=== PATIENT | male | born 1985 | race Caucasian/White ===

== ENCOUNTER 2019-07-03 21:07 | Inpatient (IN) | payer MEDICAID ==
[~2019-07-03] VITALS: Ht 170.2 cm; Wt 69.9 kg
[2019-07-03 21:25] VITALS: BP 129/81
[2019-07-03] MEDS ORDERED: Vancomycin 1.5 GM in NS 275 ML IVPB ONE (21:45)
[2019-07-03] MEDS ORDERED: Cefepime HCl 2 GM in NS 110 ML IV ONE (21:45)
[2019-07-03 22:17] LABS: BASOPHILS % (AUTO) 1.5 % (0.0-2.0); EOSINOPHILS % (AUTO) 0.1 % (0.0-3.0); HEMATOCRIT 42.9 % (42.0-52.0); HEMOGLOBIN 14.6 G/DL (14.2-18.0); LYMPHOCYTES % (AUTO) 21.5 % (20.0-45.0); MEAN CORPUSCULAR VOLUME 86 FL (80-99); MONOCYTES % (AUTO) 7.1 % (1.0-10.0); NEUTROPHILS % (AUTO) 69.8 % (45.0-75.0); PLATELET COUNT 243 K/UL (150-450); RED BLOOD COUNT 4.97 M/UL (4.70-6.10); WHITE BLOOD COUNT 5.1 K/UL (4.8-10.8)
--- NOTE | 2019-07-03 22:29 | Diagnostic Imaging Report ---
EXAM: XR Chest, 2 Views CLINICAL HISTORY: SOB TECHNIQUE: Frontal and lateral views of the chest. COMPARISON: No relevant prior studies available. FINDINGS: Lungs: Unremarkable. No consolidation. Pleural space: Unremarkable. No pneumothorax. Heart: Unremarkable. No cardiomegaly. Mediastinum: Unremarkable. Bones/joints: Unremarkable. IMPRESSION: Normal chest.
[2019-07-03] MEDS ORDERED: NKM (22:31)
[2019-07-03 22:34] LABS: ANION GAP 9 mmol/L (5-15); BLOOD UREA NITROGEN 14 mg/dL (7-18); CALCIUM 8.8 MG/DL (8.5-10.1); CARBON DIOXIDE 27 MMOL/L (21-32); CHLORIDE 98 MMOL/L (98-107); POTASSIUM 4.2 MMOL/L (3.5-5.1); SODIUM 134 MMOL/L (136-145)
[2019-07-03 22:50] LABS: ALANINE AMINOTRANSFERASE 44 U/L (12-78); ALBUMIN 3.6 G/DL (3.4-5.0); ALBUMIN/GLOBULIN RATIO 0.7 (1.0-2.7); ALKALINE PHOSPHATASE 241 U/L (46-116); ASPARTATE AMINO TRANSFERASE 47 U/L (15-37); BILIRUBIN,TOTAL 1.4 MG/DL (0.2-1.0); CKMB 0.9 NG/ML (0.0-3.6); CREATINE KINASE 84 U/L (26-308)
[2019-07-03 22:51] LABS: BILIRUBIN,DIRECT 0.2 MG/DL (0.0-0.3)
--- NOTE | 2019-07-03 23:00 | Emergency Room Report ---
History of Present Illness General Chief Complaint: Chest Pain Source: Patient Present Illness HPI 34yo M who presents with severe shortness of breath and substernal chest pain. Patient reports symptoms started 1 week ago, and he has some associated fever- like symptoms. Patient has not taken his temperature. Patient is a known IV drug abuser with a history of endocarditis. Patient states this feels like his endocarditis symptoms. Patient has not tried any medications or treatments for his symptoms. Allergies: Coded Allergies: No Known Allergies (Unverified , 07/05/19) Patient History PMH Narrative History consistent of endocarditis, IV drug abuse PSxH Narrative None Nursing Documentation-PMH Past Medical History: No History, Except For Review of Systems Constitutional: Reports: fever; Denies: chills Respiratory: Reports: cough; Denies: shortness of breath Cardiovascular: Reports: chest pain; Denies: palpitations Gastrointestinal: Denies: diarrhea, vomiting Genitourinary: Denies: hematuria, pain Musculoskeletal: Denies: joint swelling Skin: Denies: rash, lesions Neurological: Denies: headache, dizziness Physical Exam Vital Signs Date Time Temp Pulse Resp B/P (MAP) Pulse Ox O2 Delivery O2 Flow Rate FiO2 07/03/19 21:24 103.6 125 18 129/81 (97) 100 Room Air Sp02 EP Interpretation: reviewed General Appearance: no apparent distress, non-toxic, moderate distress Head: normocephalic, atraumatic Eyes: bilateral eye normal inspection ENT: hearing grossly normal, EOM grossly intact, moist mucus membranes Neck: supple Respiratory: lungs clear, normal breath sounds, decreased breath sounds, speaking full sentences Cardiovascular #1: regular rate, rhythm, normal capillary refill Cardiovascular #2: 2+ radial (R), 2+ radial (L) Gastrointestinal: soft, non-distended Rectal: deferred Musculoskeletal: moves extm spontaneously, no lower extremity edema Neurologic: grossly normal Psychiatric: mood/affect normal Skin: warm/dry, normal turgor Medical Decision Making Diagnostic Impression: Primary Impression: Respiratory distress Additional Impressions: Chest pain Fever ER Course 34-year-old male who presents with fever, chest pain, shortness of breath. No history of IV drug abuse with endocarditis in the past. Found to be in respiratory distress Differential includes endocarditis, sepsis, septic shock, viral illness, influenza, fever of unknown origin, HIV, substance abuse, ACS, PE, pneumothorax , pneumonia, esophageal rupture Will perform all laboratory testing and sepsis protocol given patient is febrile and meets criteria. Lab Results Impression Elevated bilirubin, AST, alk phos, proBNP lactic acid two-point, urine positive for leukocyte esterase and nitrites, d-dimer elevated at 1.31, CBC within normal limits Last Vital Signs Date Time Temp Pulse Resp B/P (MAP) Pulse Ox O2 Delivery O2 Flow Rate FiO2 07/03/19 21:24 103.6 125 18 129/81 (97) 100 Room Air Reevaluation Impression Patient's care discussed with primary care doctor who will admit patient for sepsis given temperature risk factors. Patient given broad-spectrum antibiotic carditis and pulmonary complaints. Patient is agreeable with plan Disposition: ADMITTED INPATIENT Scripts Levofloxacin (LEVOFLOXACIN*) 250 Mg Tablet 750 MG ORAL DAILY for 7 Days, TAB Prov: Shalom Mann MD 07/09/19 Benazepril Hcl* (BENAZEPRIL HCL*) 40 Mg Tablet 20 MG ORAL DAILY for 90 Days, TAB Prov: Shalom Mann MD 07/09/19 Referrals: NOT CHOSEN IPA/,REFERRING (PCP) Focused Exam Allergies: Coded Allergies: No Known Allergies (Unverified , 07/05/19) Date Exam Occurred: Jul 03, 2019 Time Exam Occurred: 23:00 Laboratory Studies Laboratory Tests Test 07/03/19 21:25 White Blood Count 5.1 K/UL (4.8-10.8) Red Blood Count 4.97 M/UL (4.70-6.10) Hemoglobin 14.6 G/DL (14.2-18.0) Hematocrit 42.9 % (42.0-52.0) Mean Corpuscular Volume 86 FL (80-99) Mean Corpuscular Hemoglobin 29.3 PG (27.0-31.0) Mean Corpuscular Hemoglobin Concent 33.9 G/DL (32.0-36.0) Red Cell Distribution Width 11.0 % (11.6-14.8) L Platelet Count 243 K/UL (150-450) Mean Platelet Volume 5.4 FL (6.5-10.1) L Neutrophils (%) (Auto) 69.8 % (45.0-75.0) Lymphocytes (%) (Auto) 21.5 % (20.0-45.0) Monocytes (%) (Auto) 7.1 % (1.0-10.0) Eosinophils (%) (Auto) 0.1 % (0.0-3.0) Basophils (%) (Auto) 1.5 % (0.0-2.0) D-Dimer Pending Sodium Level 134 MMOL/L (136-145) L Potassium Level 4.2 MMOL/L (3.5-5.1) Chloride Level 98 MMOL/L (98-107) Carbon Dioxide Level 27 MMOL/L (21-32) Anion Gap 9 mmol/L (5-15) Blood Urea Nitrogen 14 mg/dL (7-18) Creatinine 1.0 MG/DL (0.55-1.30) Estimat Glomerular Filtration Rate > 60 mL/min (>60) Glucose Level 81 MG/DL (74-106) Lactic Acid Level Pending Calcium Level 8.8 MG/DL (8.5-10.1) Total Bilirubin 1.4 MG/DL (0.2-1.0) H Direct Bilirubin 0.2 MG/DL (0.0-0.3) Aspartate Amino Transf (AST/SGOT) 47 U/L (15-37) H Alanine Aminotransferase (ALT/SGPT) 44 U/L (12-78) Alkaline Phosphatase 241 U/L (46-116) H Total Creatine Kinase 84 U/L (26-308) Creatine Kinase MB 0.9 NG/ML (0.0-3.6) Creatine Kinase MB Relative Index 1.0 Troponin I 0.000 ng/mL (0.000-0.056) Pro-B-Type Natriuretic Peptide 269 pg/mL (0-125) H Total Protein 8.5 G/DL (6.4-8.2) H Albumin 3.6 G/DL (3.4-5.0) Globulin 4.9 g/dL Albumin/Globulin Ratio 0.7 (1.0-2.7) L Vital Signs Last 24 Hour Vital Signs Date Time Temp Pulse Resp B/P (MAP) Pulse Ox O2 Delivery O2 Flow Rate FiO2 07/03/19 21:24 103.6 125 18 129/81 (97) 100 Room Air Respiratory Exam: Clear Cardiovascular Exam: RRR, S1, S2 Capillary Refill: Less Than 2 Seconds Peripheral Pulse: Strong Pulse Location: Yonas Devine M.D. Jul 03, 2019 23:00
[2019-07-03] MEDS ORDERED: DiphenhydrAMINE 50mg/ml Inj IVP ONE (23:15)
[2019-07-03] MEDS ORDERED: Omnipaue 350mg/ml 100ml vial INJ PRN (23:30)
[2019-07-03] MEDS ORDERED: Zolpidem 5mg tab ORAL PRN (23:45)
[2019-07-03] MEDS ORDERED: Milk of Magnesia 30ml Ud ORAL PRN (23:45)
[2019-07-03 23:50] VITALS: BP 136/90
[2019-07-04] VITALS (7 sets, daily range): BP systolic 97–116; BP diastolic 66–83
[2019-07-04 00:04] LABS: APPEARANCE,URINE CLEAR; BILIRUBIN, URINE NEGATIVE (NEGATIVE); GLUCOSE, URINE (UA) NEGATIVE (NEGATIVE); KETONES,URINE NEGATIVE (NEGATIVE); LEUKOCYTE ESTERASE ,URINE 1+ (NEGATIVE); NITRITE,URINE POSITIVE (NEGATIVE); PH,URINE 8 (4.5-8.0); PROTEIN,URINE 1+ (NEGATIVE); UROBILINOGEN,URINE 1 MG/DL (0.0-1.0)
[2019-07-04 00:06] LABS: COLOR,URINE YELLOW
--- NOTE | 2019-07-04 01:30 | Diagnostic Imaging Report ---
EXAM: CT Angiography Chest With Intravenous Contrast CLINICAL HISTORY: CP TECHNIQUE: Axial computed tomographic angiography images of the chest with intravenous contrast using pulmonary embolism protocol. CTDI is 78 mGy and DLP is 631 mGy-cm. One or more of the following dose reduction techniques were used: automated exposure control, adjustment of the mA and/or kV according to patient size, use of iterative reconstruction technique. MIP reconstructed images were created and reviewed. Coronal and sagittal reformatted images were created and reviewed. COMPARISON: No relevant prior studies available. FINDINGS: Pulmonary arteries: Unremarkable. No pulmonary embolism. Aorta: No acute findings. No thoracic aortic aneurysm. Lungs: Scattered areas of linear smooth interstitial prominence, which could be incidental or could be seen with interstitial pulmonary edema. No mass. Pleural space: Unremarkable. No significant effusion. No pneumothorax. Heart: Unremarkable. No cardiomegaly. No significant pericardial effusion. No evidence of RV dysfunction. Bones/joints: No acute fracture. No dislocation. Soft tissues: Unremarkable. Lymph nodes: Prominent right hilar 1.9 cm node, likely reactive, ischemic bowel and subsequent imaging studies. If prior is available to establish chronicity, recommend followup IV contrast enhanced CT chest in 6 months. IMPRESSION: 1. No pulmonary embolism. 2. Scattered areas of linear smooth interstitial prominence, which could be incidental or could be seen with interstitial pulmonary edema. 3. Prominent right hilar 1.9 cm node, likely reactive, ischemic bowel and subsequent imaging studies. If prior is available to establish chronicity, recommend followup IV contrast enhanced CT chest in 6 months. 4. Otherwise unremarkable study.
[2019-07-04] MEDS ORDERED: Cefepime HCl 2 GM in D5W 110 ML IV SCH (06:00)
[2019-07-04] MEDS: Cefepime HCl 2 GM in D5W 110 ML IV SCH ×2 (08:10→17:09)
[2019-07-04] MEDS: Vancomycin 1.25gm/NS Premix 275 ML IVPB SCH ×2 (11:19→21:28)
--- NOTE | 2019-07-04 12:10 | History & Physical ---
History and Physical History & Physicial HP dictated #[id number] Shalom Mann MD Jul 04, 2019 12:10
[2019-07-04] MEDS: Morphine Sulfate 2mg/ml Inj(IV/IM USE ONLY) IVP PRN ×2 (12:20→18:43)
[2019-07-04] MEDS ORDERED: Tubing IV Secondary IV ONE (16:14)
[2019-07-04] MEDS ORDERED: NS 275ml ONE (16:14)
--- NOTE | 2019-07-04 17:15 | History and Physical Report ---
DATE OF ADMISSION: 07/03/2019 CHIEF COMPLAINT: Chest pain, body aches, and fevers. HISTORY OF PRESENT ILLNESS: This is a 34-year-old male who came to the emergency room last night because of body aches, which he has had for about a week now, especially the chest pain and then he had also fevers. In the emergency room, he was noticed to have fever of 103.6. He does have a history of endocarditis, he states, he was diagnosed about a year ago at [place]. He was treated with antibiotics, but then when he left the hospital, he did not continue. The patient is a drug addict. He uses methamphetamine IV. He states the last time he used was 3 days ago. PAST MEDICAL HISTORY: Noncontributory except what was mentioned. MEDICATIONS: None. ALLERGIES: No known drug allergies. 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 He states that he lives with a friend now. He denies history of smoking or alcohol abuse. He does have history of IV drug abuse. REVIEW OF SYSTEMS: As above. PHYSICAL EXAMINATION: GENERAL: The patient is a disheveled 34-year-old male. He is feeling cold. VITAL SIGNS: Blood pressure is 97/66, pulse is 95, temperature 97.2, and respiratory rate is 20. HEENT: [place] conjunctivae. Anicteric sclerae. NECK: Supple. LUNGS: Clear to auscultation. HEART: S1, S2 without murmurs or rubs. ABDOMEN: Soft, nontender. No masses. EXTREMITIES: No cyanosis or edema. LABORATORY FINDINGS: The CBC shows WBC of 5100, hematocrit 42.9, hemoglobin is 14.6, and platelets 243,000. Chemistry panel shows serum sodium of 134, potassium 4.2, chloride 98, CO2 of 27, BUN is 14, and creatinine 1. Lactic acid was initially 2.3 and today is 0.9. Albumin is 3.6. AST is 47 and ALT is 44. ASSESSMENT: This is a 34-year-old male with history of IV drug abuse, who presents with high fevers and chest pain. He may have just a viral infection, but there is possibility he has also bacterial infection because of his IV drug abuse. He was diagnosed with endocarditis before and certainly that is a diagnosis which is still possible that is in differential diagnosis now. PLAN: The patient will be hydrated with IV fluids. He will be on IV antibiotics. ID consultation will be obtained. Labs will be followed and further adjustment will be made in the patient's regimen. The patient will have an echocardiogram to rule out any vegetations. Shalom Mann M.D. DR: Carolina JOB#: [id number] CC:
[2019-07-05] VITALS: BP 112/73
[2019-07-05] MEDS: Cefepime HCl 2 GM in D5W 110 ML IV SCH ×4 (00:16→23:54)
--- NOTE | 2019-07-05 03:46 | Consultation ---
DATE OF CONSULTATION: 07/04/2019 NOTE: POOR AUDIO INFECTIOUS DISEASE CONSULTATION CONSULTING PHYSICIAN: Casimiro Mann M.D. PRIMARY ATTENDING PHYSICIAN: Shalom Mann M.D. REASON FOR CONSULT: Sepsis. HISTORY OF PRESENT ILLNESS: This is a 34-year-old male, admitted last night from home, complaining of fever, not feeling well . The patient has fever of 102.6 in hospital, tachycardia up to 125. PAST MEDICAL HISTORY: Significant for pleural effusion. ALLERGIES: No known drug allergies. MEDICATIONS: Getting vancomycin, cefepime, Tylenol, morphine, magnesium hydroxide, Zofran, and Ambien. SOCIAL HISTORY: He is single. He . Denies alcohol, drug abuse, or smoking. REVIEW OF SYSTEMS: Pain in the left hand muscles. no chest pain. No nausea. No vomiting. No significant abdominal pain. No dysuria. PHYSICAL EXAMINATION: VITAL SIGNS: Temperature 99.8, pulse 97, and blood pressure 110/74. GENERAL APPEARANCE: No acute distress, well developed . HEAD AND NECK: [place] conjunctivae. . LUNGS: Clear. ABDOMEN: Soft. EXTREMITIES: He has some swelling in the left hand around the muscles. No significant leg edema. LABORATORY DATA: WBC 5.1, hemoglobin 14.6, hematocrit 42.9, platelets 343,000. Sodium 134, potassium 4.2, chloride 98, bicarbonate 27, BUN 14, creatinine . Lactic acid was up to 4. alkaline phosphatase 241. The patient had a CT scan of the chest rule out pulmonary emboli and interstitial . UA showed . IMPRESSION: Sepsis with fever and tachycardia, sources unknown. The patient has lactic acidosis including slight elevation of bilirubin and AST. RECOMMENDATION: Continue antibiotic vancomycin . We will follow up the cultures. We will order abdominal ultrasound. We will order HIV test. At the end of my exam, I thank Dr. Shalom Mann for involving me in the care of this patient. Casimiro Mann M.D. DR: SCOT JOB#: [id number] CC:
[2019-07-05 04:00] VITALS: BP 114/70
[2019-07-05 08:00] VITALS: BP 116/70
--- NOTE | 2019-07-05 09:34 | Diagnostic Imaging Report ---
Indication: Abdominal pain Technique: Grayscale and duplex Doppler imaging of the abdomen performed. Comparison: None Findings: The liver is enlarged measuring about 19 cm. Doppler interrogation of the main portal vein shows patency with hepatopedal, monophasic flow. Spleen is 13 cm in size. There is no biliary ductal dilatation identified. Gallbladder is unremarkable. There demonstrated part of the pancreas, aorta and IVC show no definite abnormalities. Both kidneys appear unremarkable. There is no hydronephrosis. IMPRESSION: Hepatosplenomegaly
[2019-07-05] MEDS: Vancomycin 1.25gm/NS Premix 275 ML IVPB SCH (10:46)
[2019-07-05] MEDS: Morphine Sulfate 2mg/ml Inj(IV/IM USE ONLY) IVP PRN (10:51)
[2019-07-05 12:00] VITALS: BP 106/71
--- NOTE | 2019-07-05 12:06 | Infectious Diseases Prog Note ---
Assessment/Plan Assessment/Plan A; Sepsis Lactic acidosis Hepatosplenomegaly P; Continue Vancomycin & Zosyn Will f/u cultures Subjective ROS Limited/Unobtainable: No Constitutional: Reports: fever, other - Bjyn=251.7 HEENT: Reports: other - headache Respiratory: Reports: dry cough Gastrointestinal/Abdominal: Reports: nausea, constipation Genitourinary: Reports: no symptoms Objective Vital Signs Last 24 Hour Vital Signs Date Time Temp Pulse Resp B/P (MAP) Pulse Ox O2 Delivery O2 Flow Rate FiO2 07/05/19 09:00 Room Air 07/05/19 08:00 99.0 93 18 116/70 (85) 98 07/05/19 08:00 93 07/05/19 08:00 93 07/05/19 05:05 101.1 07/05/19 04:00 115 07/05/19 04:00 101.7 119 21 114/70 (85) 96 07/05/19 00:00 96 07/05/19 00:00 100.2 99 20 112/73 (86) 98 07/04/19 21:00 Room Air 07/04/19 20:00 113 07/04/19 20:00 101.1 116 22 108/77 (87) 96 07/04/19 16:00 99.4 119 20 116/68 (84) 96 07/04/19 16:00 118 Height (Feet): 5 Height (Inches): 7.00 Weight (Pounds): 150 General Appearance: no acute distress HEENT: mucous membranes moist, other - supple neck Respiratory/Chest: lungs clear Cardiovascular: normal rate Abdomen: soft, non tender Extremities: no edema Neurologic/Psychiatric: alert, oriented x 3, responsive Microbiology Date/Time Source Procedure Growth Status 07/03/19 21:40 Blood Blood Culture - Preliminary NO GROWTH AFTER 24 HOURS Resulted 07/03/19 21:20 Blood Blood Culture - Preliminary NO GROWTH AFTER 24 HOURS Resulted 07/03/19 21:25 Nasal Not Otherwise Specified - Final Complete 07/03/19 21:25 Nasal Not Otherwise Specified - Final Complete 07/04/19 00:20 Rectum Received Laboratory Tests Test 07/05/19 09:00 Vancomycin Level Trough Pending HIV (1&2) Antibody Rapid Negative (NEGATIVE) Current Medications Medications (Trade) Dose Ordered Sig/Eulalio Route PRN Reason Start Time Stop Time Status Last Admin Dose Admin Acetaminophen (Tylenol) 650 mg Q4H PRN ORAL Mild Pain (Pain Scale 1-3) 07/03/19 23:45 08/02/19 23:44 07/05/19 04:35 Cefepime HCl 2 gm/ Dextrose 110 ml @ 220 mls/hr Q8H IV 07/04/19 08:00 07/11/19 07:59 07/05/19 08:11 Dextrose (Dextrose 50%) 25 ml Q30M PRN IV Hypoglycemia 07/03/19 23:45 08/02/19 23:44 Dextrose (Dextrose 50%) 50 ml Q30M PRN IV Hypoglycemia 07/03/19 23:45 08/02/19 23:44 Iohexol (Omnipaque) 100 mg NOW PRN INJ Radiology Procedure 07/03/19 23:30 07/05/19 23:17 Magnesium Hydroxide (Mom) 30 ml HSPRN PRN ORAL Constipation 07/03/19 23:45 08/02/19 23:44 Morphine Sulfate (Morphine Sulfate) 2 mg EVERY 3 HOURS PRN IVP Moderate Pain (Pain Scale 4-6) 07/03/19 23:45 07/10/19 23:44 07/05/19 10:51 Morphine Sulfate (Morphine Sulfate) 4 mg EVERY 3 HOURS PRN IVP Severe Pain (Pain Scale 7-10) 07/03/19 23:45 07/10/19 23:44 Ondansetron HCl (Zofran) 4 mg Q6H PRN IVP Nausea & Vomiting 07/03/19 23:45 08/02/19 23:44 07/04/19 12:24 Vancomycin HCl (Vanco rx to dose) 1 ea DAILY PRN MISC Per rx protocol 07/03/19 23:45 08/02/19 23:44 Vancomycin/Sodium Chloride 275 ml @ 184 mls/hr Q12H IVPB 07/04/19 10:00 07/09/19 09:59 07/05/19 10:46 Zolpidem Tartrate (Ambien) 5 mg DAILYPRN PRN ORAL Insomnia 07/03/19 23:45 07/10/19 23:44 Casimiro Mann MD Jul 05, 2019 12:06
--- NOTE | 2019-07-05 13:01 | General Progress Note ---
Assessment/Plan Problem List: (1) Lactic acidosis ICD Codes: E87.2 - Acidosis SNOMED: 39536602 (2) Sepsis ICD Codes: A41.9 - Sepsis, unspecified organism SNOMED: 71802110 (3) Chest pain ICD Codes: R07.9 - Chest pain, unspecified SNOMED: 63968530 Assessment/Plan: abxs follow cultures check Echo Subjective Allergies: Coded Allergies: No Known Allergies (Unverified , 07/05/19) Subjective had fevers last night Objective Last 24 Hour Vital Signs Date Time Temp Pulse Resp B/P (MAP) Pulse Ox O2 Delivery O2 Flow Rate FiO2 07/05/19 12:00 98.4 101 20 106/71 (83) 98 07/05/19 09:00 Room Air 07/05/19 08:00 99.0 93 18 116/70 (85) 98 07/05/19 08:00 93 07/05/19 08:00 93 07/05/19 05:05 101.1 07/05/19 04:00 115 07/05/19 04:00 101.7 119 21 114/70 (85) 96 07/05/19 00:00 96 07/05/19 00:00 100.2 99 20 112/73 (86) 98 07/04/19 21:00 Room Air 07/04/19 20:00 113 07/04/19 20:00 101.1 116 22 108/77 (87) 96 07/04/19 16:00 99.4 119 20 116/68 (84) 96 07/04/19 16:00 118 Intake and Output 07/04/19 07/05/19 19:00 07:00 Intake Total 480 ml 505 ml Output Total 700 ml 750 ml Balance -220 ml -245 ml Intake Oral 480 ml 120 ml IV Total 385 ml Output Urine Total 700 ml 750 ml # Voids 4 Laboratory Tests 07/05/19 09:00: Vancomycin Level Trough 7.5, HIV (1&2) Antibody Rapid Negative Height (Feet): 5 Height (Inches): 7.00 Weight (Pounds): 150 Cardiovascular: normal rate Respiratory/Chest: lungs clear Shalom Mann MD Jul 05, 2019 13:01
[2019-07-05 16:00] VITALS: BP 121/80
[2019-07-05] MEDS: Morphine Sulfate 4mg/ml Inj (IV USE ONLY) IVP PRN ×2 (16:08→20:01)
--- NOTE | 2019-07-05 19:22 | Cardiology Report ---
APPROVED REPORT EKG Measurement Heart [id number] Sinus tachycardia Cannot rule out Anterior infarct, age undetermined Abnormal ECG
--- NOTE | 2019-07-05 19:42 | Cardiology Report ---
APPROVED REPORT EXAM: Two-dimensional and M-mode echocardiogram with Doppler and color Doppler. INDICATION ENDOCARTITIS M-Mode DIMENSIONS IVSd0.6 (0.7-1.1cm)Left Atrium (MM)2.8 (1.6-4.0cm) LVDd4.0 (3.5-5.6cm)Aortic Root3.5 (2.0-3.7cm) PWd0.8 (0.7-1.1cm)Aortic Cusp Exc.1.9 (1.5-2.0cm) IVSs0.9 cm LVDs3.0 (2.5-4.0cm) PWs0.8 cm Normal left ventricular chamber size, systolic function and wall motion to extent visualized. Global left ventricular wall hypokinesia except the septal wall which is dyskinetic. Left ventricular ejection fraction is estimated to be 30-35%. There is inward septal wall excursion that is suggestive of increased RV volume and pressure overload. Normal left atrial chamber size . Moderate right atrial enlargement . Mild right ventricular enlargement with mildly reduced RV systolic function. Aortic valve calcification with normal cusp excursion . Moderately thickened mitral valve leaflets with normal excursion. Mild mitral annulus and aortic root calcification. Pulmonic valve not well visualized. Increased IVC diameter with less than 50% physiologic collapse suggestive of increased RA pressure at 12 mmHg. A color flow and spectral Doppler study was performed and revealed: Mitral diastolic velocities suggest reduced left ventricular relaxation c/w mild LV diastolic dysfunction (Grade I ) Trace mitral regurgitation. Moderate to severe tricuspid regurgitation. Tricuspid systolic velocities suggests peak right ventricular systolic pressure of 14mmHg.
[2019-07-05] MEDS: Vancomycin 1gm in Dextrose 275ml IVPB SCH (20:11)
[2019-07-05 20:23] VITALS: BP 110/67
[2019-07-06] VITALS: BP 106/73
[2019-07-06 04:00] VITALS: BP 109/67
[2019-07-06] MEDS: Vancomycin 1gm in Dextrose 275ml IVPB SCH ×2 (04:54→11:42)
[2019-07-06 08:00] VITALS: BP 120/93
[2019-07-06] MEDS: Cefepime HCl 2 GM in D5W 110 ML IV SCH ×2 (08:19→16:08)
[2019-07-06] MEDS: Morphine Sulfate 4mg/ml Inj (IV USE ONLY) IVP PRN ×2 (08:24→21:39)
--- NOTE | 2019-07-06 11:56 | Infectious Diseases Prog Note ---
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 P; Continue Vancomycin & Zosyn Will f/u cultures CT scan of abdomen & Pelvis with contrast Subjective ROS Limited/Unobtainable: No Constitutional: Reports: fever, other - last night Respiratory: Reports: dry cough Cardiovascular: Reports: no symptoms Gastrointestinal/Abdominal: Reports: nausea, constipation, other - abdominal pain Genitourinary: Reports: no symptoms Neurologic: Reports: no symptoms Allergies: Coded Allergies: No Known Allergies (Unverified , 07/05/19) Objective Vital Signs Last 24 Hour Vital Signs Date Time Temp Pulse Resp B/P (MAP) Pulse Ox O2 Delivery O2 Flow Rate FiO2 07/06/19 09:00 Room Air 07/06/19 08:00 99.1 100 18 120/93 (102) 98 07/06/19 08:00 98 07/06/19 04:00 98.8 100 17 109/67 (81) 94 07/06/19 04:00 89 07/06/19 00:00 101 07/06/19 00:00 98.6 105 19 106/73 (84) 94 07/05/19 22:45 98.6 07/05/19 21:00 Room Air 07/05/19 20:23 102.0 117 20 110/67 (81) 95 07/05/19 20:00 117 07/05/19 16:00 99.9 119 20 121/80 (94) 99 07/05/19 16:00 116 07/05/19 12:00 105 07/05/19 12:00 98.4 101 20 106/71 (83) 98 Height (Feet): 5 Height (Inches): 7.00 Weight (Pounds): 150 General Appearance: no acute distress HEENT: mucous membranes moist Respiratory/Chest: lungs clear Cardiovascular: tachycardia Abdomen: soft, non tender Extremities: no edema Neurologic/Psychiatric: alert, oriented x 3, responsive Microbiology Date/Time Source Procedure Growth Status 07/03/19 21:40 Blood Blood Culture - Preliminary Staphylococcus Sp Coag Neg Resulted 07/03/19 21:20 Blood Blood Culture - Preliminary NO GROWTH AFTER 48 HOURS Resulted 07/04/19 00:20 Nasal Nares MRSA Culture - Final Staphylococcus Aureus - Mrsa Complete 07/03/19 21:25 Nasal Not Otherwise Specified - Final Complete 07/03/19 21:25 Nasal Not Otherwise Specified - Final Complete 07/04/19 00:20 Rectum VRE Culture - Final NO VANCOMYCIN RESISTANT ENTEROCOCCUS ... Complete 07/04/19 00:17 Rectum - Final NO CARBAPENEM-RESISTANT ENTEROBACTERI... Complete Current Medications Medications (Trade) Dose Ordered Sig/Eulalio Route PRN Reason Start Time Stop Time Status Last Admin Dose Admin Acetaminophen (Tylenol) 650 mg Q4H PRN ORAL Mild Pain (Pain Scale 1-3) 07/03/19 23:45 08/02/19 23:44 07/05/19 22:15 Cefepime HCl 2 gm/ Dextrose 110 ml @ 220 mls/hr Q8H IV 07/04/19 08:00 07/11/19 07:59 07/06/19 08:19 Dextrose (Dextrose 50%) 25 ml Q30M PRN IV Hypoglycemia 07/03/19 23:45 08/02/19 23:44 Dextrose (Dextrose 50%) 50 ml Q30M PRN IV Hypoglycemia 07/03/19 23:45 08/02/19 23:44 Magnesium Hydroxide (Mom) 30 ml HSPRN PRN ORAL Constipation 07/03/19 23:45 08/02/19 23:44 Morphine Sulfate (Morphine Sulfate) 2 mg EVERY 3 HOURS PRN IVP Moderate Pain (Pain Scale 4-6) 07/03/19 23:45 07/10/19 23:44 07/05/19 10:51 Morphine Sulfate (Morphine Sulfate) 4 mg EVERY 3 HOURS PRN IVP Severe Pain (Pain Scale 7-10) 07/03/19 23:45 07/10/19 23:44 07/06/19 08:24 Ondansetron HCl (Zofran) 4 mg Q6H PRN IVP Nausea & Vomiting 07/03/19 23:45 08/02/19 23:44 07/05/19 23:54 Vancomycin HCl (Vanco rx to dose) 1 ea DAILY PRN MISC Per rx protocol 07/03/19 23:45 08/02/19 23:44 Vancomycin HCl 1 gm/Dextrose 275 ml @ 183.708 mls/hr Q8H IVPB 07/05/19 20:00 07/10/19 19:59 07/06/19 11:42 Zolpidem Tartrate (Ambien) 5 mg DAILYPRN PRN ORAL Insomnia 07/03/19 23:45 07/10/19 23:44 Casimiro Mann MD Jul 06, 2019 11:56
[2019-07-06 12:00] VITALS: BP 113/72
[2019-07-06] MEDS ORDERED: Omnipaque-300 100ml vial INJ PRN (12:00)
[2019-07-06] MEDS: Morphine Sulfate 2mg/ml Inj(IV/IM USE ONLY) IVP PRN (15:18)
[2019-07-06 16:00] VITALS: BP 115/77
--- NOTE | 2019-07-06 16:33 | Diagnostic Imaging Report ---
Clinical Indication: Abdominal pain Technique: Patient ingested oral contrast. IV administration nonionic contrast. Venous phase spiral acquisition obtained through the abdomen and pelvis. Multiplanar reconstructions were generated. Total dose length product 684 mGycm. CTDIvol(s) 12 mGy. Dose reduction achieved using automated exposure control Comparison: none Findings: There is distention of the rectum by feces, diameter of the rectum to the 6 cm. There is no significant rectal wall thickening. No evidence of colonic diverticulosis or diverticulitis. The appendix is not definitely identified, but no findings to suggest acute appendicitis are evident. Ingested contrast has not reached the distal ileum. No small bowel distention or small bowel wall thickening. Distal esophagus, stomach, duodenum are unremarkable. No free or loculated intraperitoneal gas or fluid is evident. The liver is mildly enlarged. The gallbladder, bile ducts, pancreas are unremarkable. The spleen is enlarged, measures 14.1 cm long axis dimension. The adrenals and kidneys are unremarkable. No retroperitoneal or mesenteric mass or adenopathy. No pelvic mass or adenopathy. The bladder is equivocally slightly thick walled, although this could be an artifact of under distention There is a small anterior wall pericardial effusion noted. The heart is enlarged. The included lung bases demonstrate mild interstitial septal thickening. Atelectasis or scarring is seen at both lung bases. Impression: Mild distention of the rectum by feces, rectal fecal impaction possible. Correlate with clinical findings Borderline bladder wall thickening, probably artifact of under distention but No definite acute process otherwise Splenomegaly Mild hepatomegaly Cardiomegaly Small anterior wall pericardial effusion Interstitial pulmonary septal thickening, nonspecific but suspect on the basis of mild pulmonary edema Basilar atelectasis and scarring incidentally noted The CT scanner at [facility] is accredited by the [employer] and the scans are performed using protocols designed to limit radiation exposure to as low as reasonably achievable to attain images of sufficient resolution adequate for diagnostic evaluation.
[2019-07-06 20:00] VITALS: BP 112/74
--- NOTE | 2019-07-06 20:10 | General Progress Note ---
Assessment/Plan Problem List: (1) Lactic acidosis ICD Codes: E87.2 - Acidosis SNOMED: 58258050 (2) Sepsis ICD Codes: A41.9 - Sepsis, unspecified organism SNOMED: 29051748 (3) Chest pain ICD Codes: R07.9 - Chest pain, unspecified SNOMED: 72156183 (4) Cardiomyopathy ICD Codes: I42.9 - Cardiomyopathy, unspecified SNOMED: 55471045 Assessment/Plan: srat benazepril abxs will discuss with ID Subjective Allergies: Coded Allergies: No Known Allergies (Unverified , 07/05/19) Subjective feels weak Objective Last 24 Hour Vital Signs Date Time Temp Pulse Resp B/P (MAP) Pulse Ox O2 Delivery O2 Flow Rate FiO2 07/06/19 16:00 108 07/06/19 16:00 99.9 108 20 115/77 (90) 98 07/06/19 12:00 101 07/06/19 12:00 99.7 105 18 113/72 (86) 96 07/06/19 09:00 Room Air 07/06/19 08:00 99.1 100 18 120/93 (102) 98 07/06/19 08:00 98 07/06/19 04:00 98.8 100 17 109/67 (81) 94 07/06/19 04:00 89 07/06/19 00:00 101 07/06/19 00:00 98.6 105 19 106/73 (84) 94 07/05/19 22:45 98.6 07/05/19 21:00 Room Air 07/05/19 20:23 102.0 117 20 110/67 (81) 95 Intake and Output 07/05/19 07/06/19 19:00 07:00 Intake Total 800 ml 250 ml Output Total 600 ml 1000 ml Balance 200 ml -750 ml Intake Oral 800 ml 250 ml Output Urine Total 600 ml 1000 ml # Voids 2 Laboratory Tests 07/06/19 19:00: Vancomycin Level Trough [Pending] Height (Feet): 5 Height (Inches): 7.00 Weight (Pounds): 150 Cardiovascular: normal rate Respiratory/Chest: lungs clear Shalom Mann MD Jul 06, 2019 20:10
[2019-07-06] MEDS: Vancomycin 1.25gm/NS Premix IVPB SCH (21:37)
[2019-07-07] VITALS: BP 98/55
[2019-07-07] MEDS: Cefepime HCl 2 GM in D5W 110 ML IV SCH ×3 (00:06→16:28)
[2019-07-07 04:00] VITALS: BP 108/67
[2019-07-07] MEDS: Vancomycin 1.25gm/NS Premix IVPB SCH ×2 (04:50→12:40)
[2019-07-07 08:00] VITALS: BP 102/64
[2019-07-07 08:15] LABS: BASOPHILS % (AUTO) 0.5 % (0.0-2.0); EOSINOPHILS % (AUTO) 0.4 % (0.0-3.0); HEMATOCRIT 41.7 % (42.0-52.0); HEMOGLOBIN 13.8 G/DL (14.2-18.0); LYMPHOCYTES % (AUTO) 31.7 % (20.0-45.0); MEAN CORPUSCULAR VOLUME 87 FL (80-99); MONOCYTES % (AUTO) 8.7 % (1.0-10.0); NEUTROPHILS % (AUTO) 58.8 % (45.0-75.0); PLATELET COUNT 237 K/UL (150-450); WHITE BLOOD COUNT 6.4 K/UL (4.8-10.8)
[2019-07-07 12:00] VITALS: BP 103/68
--- NOTE | 2019-07-07 12:14 | Infectious Diseases Prog Note ---
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 CHF, EF =30-35% Tricuspid regurgitation Mild fecal impaction P; Continue Vancomycin & Zosyn Will f/u cultures Subjective ROS Limited/Unobtainable: No Constitutional: Reports: fever Respiratory: Reports: no symptoms Cardiovascular: Reports: chest pain Gastrointestinal/Abdominal: Reports: no symptoms, constipation Genitourinary: Reports: no symptoms Allergies: Coded Allergies: No Known Allergies (Unverified , 07/05/19) Objective Vital Signs Last 24 Hour Vital Signs Date Time Temp Pulse Resp B/P (MAP) Pulse Ox O2 Delivery O2 Flow Rate FiO2 07/07/19 08:34 102/64 07/07/19 08:00 98.2 69 18 102/64 (77) 97 07/07/19 08:00 89 07/07/19 05:45 98.2 07/07/19 05:34 98.2 07/07/19 04:00 100.5 114 20 108/67 (81) 96 07/07/19 04:00 117 07/07/19 00:00 98.8 100 18 98/55 (69) 99 07/07/19 00:00 100 07/06/19 21:38 112/74 07/06/19 21:00 Room Air 07/06/19 20:00 98.2 87 19 112/74 (87) 97 07/06/19 20:00 92 07/06/19 16:00 108 07/06/19 16:00 99.9 108 20 115/77 (90) 98 Height (Feet): 5 Height (Inches): 7.00 Weight (Pounds): 154 General Appearance: no acute distress HEENT: mucous membranes moist Respiratory/Chest: lungs clear Cardiovascular: normal rate Abdomen: soft, non tender Extremities: no edema Neurologic/Psychiatric: alert, oriented x 3, responsive Laboratory Tests Test 07/06/19 19:00 07/07/19 07:15 Vancomycin Level Trough 11.0 ug/mL (5.0-12.0) White Blood Count 6.4 K/UL (4.8-10.8) Red Blood Count 4.80 M/UL (4.70-6.10) Hemoglobin 13.8 G/DL (14.2-18.0) L Hematocrit 41.7 % (42.0-52.0) L Mean Corpuscular Volume 87 FL (80-99) Mean Corpuscular Hemoglobin 28.7 PG (27.0-31.0) Mean Corpuscular Hemoglobin Concent 33.0 G/DL (32.0-36.0) Red Cell Distribution Width 12.0 % (11.6-14.8) Platelet Count 237 K/UL (150-450) Mean Platelet Volume 5.4 FL (6.5-10.1) L Neutrophils (%) (Auto) 58.8 % (45.0-75.0) Lymphocytes (%) (Auto) 31.7 % (20.0-45.0) Monocytes (%) (Auto) 8.7 % (1.0-10.0) Eosinophils (%) (Auto) 0.4 % (0.0-3.0) Basophils (%) (Auto) 0.5 % (0.0-2.0) Current Medications Medications (Trade) Dose Ordered Sig/Eulalio Route PRN Reason Start Time Stop Time Status Last Admin Dose Admin Acetaminophen (Tylenol) 650 mg Q4H PRN ORAL Mild Pain (Pain Scale 1-3) 07/03/19 23:45 08/02/19 23:44 07/07/19 05:04 Barium Sulfate (Readi-Cat 2) 450 ml NOW PRN ORAL Radiology Procedure 07/06/19 12:00 07/08/19 11:56 Benazepril HCl (Lotensin) 20 mg DAILY ORAL 07/06/19 20:15 08/05/19 20:14 07/06/19 21:38 Cefepime HCl 2 gm/ Dextrose 110 ml @ 220 mls/hr Q8H IV 07/04/19 08:00 07/11/19 07:59 07/07/19 08:34 Dextrose (Dextrose 50%) 25 ml Q30M PRN IV Hypoglycemia 07/03/19 23:45 08/02/19 23:44 Dextrose (Dextrose 50%) 50 ml Q30M PRN IV Hypoglycemia 07/03/19 23:45 08/02/19 23:44 Iohexol (OMNIPAQUE-300 100ml) 100 ml NOW PRN INJ Radiology Procedure 07/06/19 12:00 07/08/19 11:56 Magnesium Hydroxide (Mom) 30 ml HSPRN PRN ORAL Constipation 07/03/19 23:45 08/02/19 23:44 Morphine Sulfate (Morphine Sulfate) 2 mg EVERY 3 HOURS PRN IVP Moderate Pain (Pain Scale 4-6) 07/03/19 23:45 07/10/19 23:44 07/06/19 15:18 Morphine Sulfate (Morphine Sulfate) 4 mg EVERY 3 HOURS PRN IVP Severe Pain (Pain Scale 7-10) 07/03/19 23:45 07/10/19 23:44 07/06/19 21:39 Ondansetron HCl (Zofran) 4 mg Q6H PRN IVP Nausea & Vomiting 07/03/19 23:45 08/02/19 23:44 07/05/19 23:54 Vancomycin HCl (Vanco rx to dose) 1 ea DAILY PRN MISC Per rx protocol 07/03/19 23:45 08/02/19 23:44 Vancomycin/Sodium Chloride 275 ml @ 183.333 mls/hr Q8H IVPB 07/06/19 21:00 07/11/19 20:59 07/07/19 04:50 Zolpidem Tartrate (Ambien) 5 mg DAILYPRN PRN ORAL Insomnia 07/03/19 23:45 07/10/19 23:44 Casimiro Mann MD Jul 07, 2019 12:14
--- NOTE | 2019-07-07 14:06 | General Progress Note ---
Assessment/Plan Problem List: (1) Lactic acidosis ICD Codes: E87.2 - Acidosis SNOMED: 41917292 (2) Sepsis ICD Codes: A41.9 - Sepsis, unspecified organism SNOMED: 52229052 (3) Chest pain ICD Codes: R07.9 - Chest pain, unspecified SNOMED: 63685103 (4) Cardiomyopathy ICD Codes: I42.9 - Cardiomyopathy, unspecified SNOMED: 93429783 Assessment/Plan: cardiology consult abxs discussed with RN Subjective Allergies: Coded Allergies: No Known Allergies (Unverified , 07/05/19) Subjective feels weak Objective Last 24 Hour Vital Signs Date Time Temp Pulse Resp B/P (MAP) Pulse Ox O2 Delivery O2 Flow Rate FiO2 07/07/19 12:00 81 07/07/19 12:00 97.8 86 18 103/68 (80) 100 07/07/19 09:00 Room Air 07/07/19 08:34 102/64 07/07/19 08:00 98.2 69 18 102/64 (77) 97 07/07/19 08:00 89 07/07/19 05:45 98.2 07/07/19 05:34 98.2 07/07/19 04:00 100.5 114 20 108/67 (81) 96 07/07/19 04:00 117 07/07/19 00:00 98.8 100 18 98/55 (69) 99 07/07/19 00:00 100 07/06/19 21:38 112/74 07/06/19 21:00 Room Air 07/06/19 20:00 98.2 87 19 112/74 (87) 97 07/06/19 20:00 92 07/06/19 16:00 108 07/06/19 16:00 99.9 108 20 115/77 (90) 98 Intake and Output 07/06/19 07/07/19 18:59 06:59 Intake Total 940 ml 760 ml Output Total 900 ml 1300 ml Balance 40 ml -540 ml Intake Oral 940 ml 760 ml Output Urine Total 900 ml 1300 ml # Voids 3 Laboratory Tests 07/06/19 19:00: Vancomycin Level Trough 11.0 07/07/19 07:15: White Blood Count 6.4, Red Blood Count 4.80, Hemoglobin 13.8L, Hematocrit 41.7L , Mean Corpuscular Volume 87, Mean Corpuscular Hemoglobin 28.7, Mean Corpuscular Hemoglobin Concent 33.0, Red Cell Distribution Width 12.0, Platelet Count 237, Mean Platelet Volume 5.4L, Neutrophils (%) (Auto) 58.8, Lymphocytes ( %) (Auto) 31.7, Monocytes (%) (Auto) 8.7, Eosinophils (%) (Auto) 0.4, Basophils (%) (Auto) 0.5 Height (Feet): 5 Height (Inches): 7.00 Weight (Pounds): 154 Cardiovascular: normal rate Respiratory/Chest: lungs clear Edema: no edema noted Generalized Shalom Mann MD Jul 07, 2019 14:06
[2019-07-07] MEDS ORDERED: Omnipaque-300 100ml vial INJ PRN (15:30)
[2019-07-07] MEDS ORDERED: Morphine Sulfate 2mg/ml Inj(IV/IM USE ONLY) IVP PRN (15:30)
[2019-07-07 16:00] VITALS: BP 102/95
[2019-07-07] MEDS: Milk of Magnesia 30ml Ud ORAL PRN (16:42)
[2019-07-07] MEDS: Morphine Sulfate 4mg/ml Inj (IV USE ONLY) IVP PRN (16:44)
[2019-07-07 20:00] VITALS: BP 113/68
[2019-07-07] MEDS ORDERED: Zolpidem 5mg tab ORAL PRN (21:00)
[2019-07-07] MEDS ORDERED: Vancomycin 1.25gm/NS Premix 275 ML IVPB SCH (21:00)
[2019-07-08] VITALS: BP 112/66
[2019-07-08] MEDS: Cefepime HCl 2 GM in D5W 110 ML IV SCH ×4 (00:25→23:29)
[2019-07-08] MEDS: Morphine Sulfate 4mg/ml Inj (IV USE ONLY) IVP PRN ×5 (00:34→20:57)
[2019-07-08 04:00] VITALS: BP 111/67
[2019-07-08] MEDS: Vancomycin 1.5gm/NS Premix IVPB SCH ×3 (04:16→20:52)
[2019-07-08 06:40] LABS: ANION GAP 10 mmol/L (5-15); BLOOD UREA NITROGEN 15 mg/dL (7-18); CALCIUM 8.1 MG/DL (8.5-10.1); CARBON DIOXIDE 25 MMOL/L (21-32); CHLORIDE 96 MMOL/L (98-107); CREATININE 0.8 MG/DL (0.55-1.30); POTASSIUM 5.1 MMOL/L (3.5-5.1); SODIUM 131 MMOL/L (136-145)
[2019-07-08 08:00] VITALS: BP 101/66
[2019-07-08 12:00] VITALS: BP 109/75
--- NOTE | 2019-07-08 12:48 | General Progress Note ---
Assessment/Plan Problem List: (1) Lactic acidosis ICD Codes: E87.2 - Acidosis SNOMED: 44229931 (2) Sepsis ICD Codes: A41.9 - Sepsis, unspecified organism SNOMED: 96539580 (3) Chest pain ICD Codes: R07.9 - Chest pain, unspecified SNOMED: 67128743 (4) Cardiomyopathy ICD Codes: I42.9 - Cardiomyopathy, unspecified SNOMED: 34151378 Assessment/Plan: cardiology consult abxs discussed with RN Alexandre inhibitors Subjective Allergies: Coded Allergies: No Known Allergies (Unverified , 07/05/19) Subjective feels better Objective Last 24 Hour Vital Signs Date Time Temp Pulse Resp B/P (MAP) Pulse Ox O2 Delivery O2 Flow Rate FiO2 07/08/19 12:00 97.9 92 19 109/75 (86) 98 07/08/19 09:00 Room Air 07/08/19 08:10 101/66 07/08/19 08:00 97.7 102 18 101/66 (78) 97 07/08/19 04:00 99.2 98 17 111/67 (82) 97 07/08/19 00:00 98.8 107 17 112/66 (81) 97 07/07/19 21:00 Room Air 07/07/19 20:00 98.3 95 17 113/68 (83) 98 07/07/19 16:00 98.2 81 16 102/95 (97) 98 Intake and Output 07/07/19 07/08/19 19:00 07:00 Intake Total 250 ml 660.000 ml Output Total 200 ml 500 ml Balance 50 ml 160.000 ml Intake Oral 140 ml IV Total 110 ml 660.000 ml Output Urine Total 200 ml 500 ml # Voids 1 2 # Bowel Movements 1 Laboratory Tests 07/07/19 20:10: Vancomycin Level Trough 13.9H 07/08/19 06:15: Sodium Level 131L, Potassium Level 5.1, Chloride Level 96L, Carbon Dioxide Level 25, Anion Gap 10, Blood Urea Nitrogen 15, Creatinine 0.8, Estimat Glomerular Filtration Rate > 60, Glucose Level 96, Calcium Level 8.1L Height (Feet): 5 Height (Inches): 7.00 Weight (Pounds): 154 Cardiovascular: normal rate Respiratory/Chest: lungs clear Edema: no edema noted Generalized Shalom Mann MD Jul 08, 2019 12:48
--- NOTE | 2019-07-08 15:43 | Infectious Diseases Prog Note ---
Assessment/Plan Assessment/Plan A; Sepsis, no source was found Lactic acidosis Hepatosplenomegaly MRSA carrier Positive blood culture for CoANS likely contamination CHF, EF =30-35% Tricuspid regurgitation Mild fecal impaction P; Continue Vancomycin & Cefepime X 2 days Will f/u cultures Subjective ROS Limited/Unobtainable: No Constitutional: Reports: no symptoms, other - feels better Respiratory: Reports: no symptoms Gastrointestinal/Abdominal: Reports: no symptoms, other - had bowel movement Genitourinary: Reports: no symptoms Allergies: Coded Allergies: No Known Allergies (Unverified , 07/05/19) Objective Vital Signs Last 24 Hour Vital Signs Date Time Temp Pulse Resp B/P (MAP) Pulse Ox O2 Delivery O2 Flow Rate FiO2 07/08/19 12:00 97.9 92 19 109/75 (86) 98 07/08/19 09:00 Room Air 07/08/19 08:10 101/66 07/08/19 08:00 97.7 102 18 101/66 (78) 97 07/08/19 04:00 99.2 98 17 111/67 (82) 97 07/08/19 00:00 98.8 107 17 112/66 (81) 97 07/07/19 21:00 Room Air 07/07/19 20:00 98.3 95 17 113/68 (83) 98 07/07/19 16:00 98.2 81 16 102/95 (97) 98 Height (Feet): 5 Height (Inches): 7.00 Weight (Pounds): 154 General Appearance: no acute distress HEENT: mucous membranes moist Respiratory/Chest: lungs clear Cardiovascular: normal rate Abdomen: soft, non tender Extremities: no edema Neurologic/Psychiatric: alert, oriented x 3, responsive Laboratory Tests Test 07/07/19 20:10 07/08/19 06:15 Vancomycin Level Trough 13.9 ug/mL (5.0-12.0) H Sodium Level 131 MMOL/L (136-145) L Potassium Level 5.1 MMOL/L (3.5-5.1) Chloride Level 96 MMOL/L (98-107) L Carbon Dioxide Level 25 MMOL/L (21-32) Anion Gap 10 mmol/L (5-15) Blood Urea Nitrogen 15 mg/dL (7-18) Creatinine 0.8 MG/DL (0.55-1.30) Estimat Glomerular Filtration Rate > 60 mL/min (>60) Glucose Level 96 MG/DL (74-106) Calcium Level 8.1 MG/DL (8.5-10.1) L Current Medications Medications (Trade) Dose Ordered Sig/Eulalio Route PRN Reason Start Time Stop Time Status Last Admin Dose Admin Acetaminophen (Tylenol) 650 mg Q4H PRN ORAL Mild Pain (Pain Scale 1-3) 07/07/19 17:00 08/02/19 16:59 Barium Sulfate (Readi-Cat 2) 450 ml NOW PRN ORAL Radiology Procedure 07/07/19 15:30 07/08/19 23:59 Benazepril HCl (Lotensin) 20 mg DAILY ORAL 07/08/19 09:00 08/05/19 20:14 Cefepime HCl 2 gm/ Dextrose 110 ml @ 220 mls/hr Q8H IV 07/07/19 16:00 07/11/19 07:59 07/08/19 08:12 Dextrose (Dextrose 50%) 25 ml Q30M PRN IV Hypoglycemia 07/07/19 15:45 08/02/19 23:44 Dextrose (Dextrose 50%) 50 ml Q30M PRN IV Hypoglycemia 07/07/19 15:45 08/02/19 23:44 Iohexol (OMNIPAQUE-300 100ml) 100 ml NOW PRN INJ Radiology Procedure 07/07/19 15:30 07/08/19 23:59 Magnesium Hydroxide (Mom) 30 ml HSPRN PRN ORAL Constipation 07/07/19 16:30 08/02/19 16:29 07/07/19 16:42 Morphine Sulfate (Morphine Sulfate) 2 mg Q3H PRN IVP Moderate Pain (Pain Scale 4-6) 07/07/19 15:30 07/14/19 15:29 Morphine Sulfate (Morphine Sulfate) 4 mg Q3H PRN IVP Severe Pain (Pain Scale 7-10) 07/07/19 15:30 07/14/19 15:29 07/08/19 10:55 Ondansetron HCl (Zofran) 4 mg Q6H PRN IVP Nausea & Vomiting 07/07/19 15:30 08/02/19 15:29 Vancomycin HCl (Vanco rx to dose) 1 ea DAILY PRN MISC Per rx protocol 07/08/19 09:00 08/02/19 23:44 Vancomycin/Sodium Chloride 275 ml @ 137.5 mls/ hr Q8H IVPB 07/08/19 05:00 07/13/19 04:59 07/08/19 12:26 Zolpidem Tartrate (Ambien) 5 mg DAILYPRN PRN ORAL Insomnia 07/07/19 21:00 07/10/19 20:59 Casimiro aMnn MD Jul 08, 2019 15:42
[2019-07-08 15:55] VITALS: BP 102/70
[2019-07-08] MEDS: Milk of Magnesia 30ml Ud ORAL PRN (17:01)
[2019-07-08 20:00] VITALS: BP 116/76
[2019-07-09 00:48] VITALS: BP 111/78
--- NOTE | 2019-07-09 01:45 | Consultation ---
DATE OF CONSULTATION: 07/04/2019 INFECTIOUS DISEASE CONSULTATION CONSULTING PHYSICIAN: Casimiro Mann M.D. PRIMARY ATTENDING PHYSICIAN: Shalom Mann M.D. REASON FOR CONSULTATION: Sepsis. HISTORY OF PRESENT ILLNESS: This is a 34-year-old male admitted last night from home complaining of fever, not feeling well for a week. The patient had fever of 103.6 in the hospital, tachycardia up to 125. PAST MEDICAL HISTORY: Significant for pleural effusion. ALLERGIES: No known drug allergies. MEDICATIONS: Getting vancomycin, cefepime, Tylenol, morphine, magnesium hydroxide, Zofran, and Ambien. SOCIAL HISTORY: He is single. He is working in [employer]. Denies alcohol, drug abuse, or smoking. REVIEW OF SYSTEMS: Pain in the left hand knuckles. Fever. No significant coughing. No chest pain. No nausea. No vomiting. No significant abdominal pain. No dysuria. PHYSICAL EXAMINATION: VITAL SIGNS: Temperature 99.8, pulse 110, and blood pressure 110/74. GENERAL APPEARANCE: No acute distress. Seems to be unkempt. HEAD AND NECK: Carrier conjunctivae. HEART: Tachycardic. LUNGS: Clear. ABDOMEN: Soft. EXTREMITIES: Some swelling in the left hand around the knuckles. No significant leg edema. LABORATORY DATA: WBC 5.1, hemoglobin 14.6, hematocrit 42.9, and platelets 243,000. Sodium 134, potassium 4.2, chloride 98, bicarbonate 27, BUN 14, and creatinine 1. Lactic acid was up to 4. Bilirubin 1.4, alkaline phosphatase 241. The patient had a CT scan of the chest that ruled out pulmonary emboli, has interstitial prominence and right hilar lymph nodes IMPRESSION: Sepsis with fever and tachycardia, source is unknown. The patient has lactic acidosis , slight elevation of bilirubin and AST. RECOMMENDATIONS: Continue broad spectrum antibiotics of vancomycin and cefepime. We will follow up the cultures. We will order abdominal ultrasound. We will order HIV test. At the end of my exam, I thank Dr. Shalom Mann for involving me in the care of this patient. Casimiro Mann M.D. DR: SCOT Morales: 07/08/2019 16:36 JOB#: [id number] CC: RHONDA
--- NOTE | 2019-07-09 03:45 | Consultation ---
DATE OF CONSULTATION: INCOMPLETE DICTATION INFECTIOUS DISEASE CONSULTATION I wrote this consult before, but because of poor audio quality, I recorded consult. Casimiro Mann M.D. DR: SCOT JOB#: [id number] CC:
[2019-07-09 04:00] VITALS: BP 116/87
[2019-07-09] MEDS: Vancomycin 1.5gm/NS Premix IVPB SCH (07:35)
[2019-07-09] MEDS: Vancomycin 1gm in Dextrose 275ml IVPB SCH (07:35)
[2019-07-09 08:00] VITALS: BP 110/67
[2019-07-09] MEDS: Cefepime HCl 2 GM in D5W 110 ML IV SCH (08:12)
[2019-07-09] MEDS: Morphine Sulfate 4mg/ml Inj (IV USE ONLY) IVP PRN (08:17)
[2019-07-09 12:00] VITALS: BP 115/79
--- NOTE | 2019-07-09 12:33 | Infectious Diseases Prog Note ---
Assessment/Plan Assessment/Plan A; Sepsis, no source was found Lactic acidosis Hepatosplenomegaly MRSA carrier Positive blood culture for CoANS likely contamination CHF, EF =30-35% Tricuspid regurgitation Mild fecal impaction P; Discontinue Vancomycin & Cefepime PO Levaquin X 7 days Subjective ROS Limited/Unobtainable: No Constitutional: Reports: fever, other - feels better Respiratory: Reports: no symptoms Gastrointestinal/Abdominal: Reports: no symptoms Genitourinary: Reports: no symptoms Neurologic: Reports: no symptoms Allergies: Coded Allergies: No Known Allergies (Unverified , 07/05/19) Objective Vital Signs Last 24 Hour Vital Signs Date Time Temp Pulse Resp B/P (MAP) Pulse Ox O2 Delivery O2 Flow Rate FiO2 07/09/19 12:00 98.8 101 16 115/79 (91) 99 07/09/19 09:00 Room Air 07/09/19 08:15 110/67 07/09/19 08:00 99.7 90 18 110/67 (81) 96 07/09/19 04:00 97.3 77 18 116/87 (97) 97 07/09/19 01:14 100.0 07/09/19 00:48 101.2 101 20 111/78 (89) 97 07/08/19 21:32 98.0 07/08/19 21:00 Room Air 07/08/19 20:00 99.1 101 19 116/76 (89) 99 07/08/19 15:55 98.0 90 18 102/70 (81) 100 Height (Feet): 5 Height (Inches): 7.00 Weight (Pounds): 154 General Appearance: no acute distress HEENT: mucous membranes moist Respiratory/Chest: lungs clear Cardiovascular: normal rate Abdomen: soft, non tender Extremities: no edema Neurologic/Psychiatric: alert, oriented x 3, responsive Laboratory Tests Test 07/09/19 04:10 Vancomycin Level Trough 28.4 ug/mL (5.0-12.0) H Current Medications Medications (Trade) Dose Ordered Sig/Eulalio Route PRN Reason Start Time Stop Time Status Last Admin Dose Admin Acetaminophen (Tylenol) 650 mg Q4H PRN ORAL Mild Pain (Pain Scale 1-3) 07/07/19 17:00 08/02/19 16:59 07/09/19 00:38 Benazepril HCl (Lotensin) 20 mg DAILY ORAL 07/08/19 09:00 08/05/19 20:14 Cefepime HCl 2 gm/ Dextrose 110 ml @ 220 mls/hr Q8H IV 07/07/19 16:00 07/11/19 07:59 07/09/19 08:12 Dextrose (Dextrose 50%) 25 ml Q30M PRN IV Hypoglycemia 07/07/19 15:45 08/02/19 23:44 Dextrose (Dextrose 50%) 50 ml Q30M PRN IV Hypoglycemia 07/07/19 15:45 08/02/19 23:44 Magnesium Hydroxide (Mom) 30 ml HSPRN PRN ORAL Constipation 07/07/19 16:30 08/02/19 16:29 07/08/19 17:01 Morphine Sulfate (Morphine Sulfate) 2 mg Q3H PRN IVP Moderate Pain (Pain Scale 4-6) 07/07/19 15:30 07/14/19 15:29 Morphine Sulfate (Morphine Sulfate) 4 mg Q3H PRN IVP Severe Pain (Pain Scale 7-10) 07/07/19 15:30 07/14/19 15:29 07/09/19 08:17 Ondansetron HCl (Zofran) 4 mg Q6H PRN IVP Nausea & Vomiting 07/07/19 15:30 08/02/19 15:29 Vancomycin HCl (Vanco rx to dose) 1 ea DAILY PRN MISC Per rx protocol 07/08/19 09:00 08/02/19 23:44 Vancomycin/Sodium Chloride 275 ml @ 183.333 mls/hr Q8HR IVPB 07/09/19 14:00 07/14/19 13:59 Zolpidem Tartrate (Ambien) 5 mg DAILYPRN PRN ORAL Insomnia 07/07/19 21:00 07/10/19 20:59 Casimiro Mann MD Jul 09, 2019 12:33
[2019-07-09] MEDS ORDERED: Vancomycin 1.25gm/NS Premix q24h IVPB SCH (14:00)
[2019-07-09] MEDS ORDERED: LEVOFLOXACIN250 MG ORAL (14:56)
[2019-07-09] MEDS ORDERED: BENAZEPRIL HCL40 MG ORAL (14:56)
[2019-07-09 15:56] VITALS: BP 120/70
--- NOTE | 2019-07-11 19:44 | Discharge Summary ---
Discharge Summary Discharge Summary _ DATE OF ADMISSION: 07/03/2019 DATE OF DISCHARGE: 07/09/2019 DISCHARGED BY: Dr. Shalom Mann CONSULTANTS: Dr. Casimiro Mann BRIEF HOSPITAL COURSE: Patient is a 34-year-old male, who presented to the emergency room because of body ache, x1 week, especially chest pain and also fever. In the emergency room , he was noted to have fever of 103.6. He has a history of endocarditis, was diagnosed a year ago at [place]. He was treated with antibiotics, but when he left the hospital, he did not continue the antibiotics. Patient is a drug addict, he uses methamphetamine IV. Last time he used was 3 days prior to admission. On evaluation at the ED, blood work did not show any leukocytosis. Total bilirubin was elevated to 1.4. AST was elevated to 47. Alkaline phosphatase 241. proBNP was 269. Urinalysis was positive for leukocyte esterase and nitrites. D-dimer was elevated to 1.31. Sepsis protocol initiated. He was given empiric antibiotics. He was admitted for evaluation of chest pain. ID was consulted. Patient was febrile and tachycardic. He was given broad- spectrum vancomycin and cefepime. Chest CTA did not show any pulmonary embolism. There was scattered areas of linear smooth interstitial prominence. Prominent right hilar lymph node, likely reactive. Abdominal ultrasound showed hepatosplenomegaly. HIV screen negative. Blood culture showed growth of coagulase-negative staph. Echocardiogram showed EF of 30 to 35%. Increased RV volume and pressure overload. He was given benazepril. CT of the abdomen and pelvis showed fecal impaction. No acute process. He was given bowel regimen milk of magnesia. He was strongly counseled against illicit drug use. He was eventually cleared for discharge home to continue levofloxacin 750 mg daily for 7 days. FINAL DIAGNOSES: Sepsis Lactic acidosis Hepatosplenomegaly MRSA carrier Positive blood culture for coagulase-negative staph, likely contamination Chest pain Cardiomyopathy Mild fecal impaction Tricuspid regurgitation Drug abuse DISPOSITION: Patient was discharged home. DISCHARGE MEDICATIONS: Refer to Discharge Medication List. DISCHARGE INSTRUCTIONS: Follow-up in a week. I have been assigned to complete a discharge summary on this account, I was not involved with the patient's management.--KVNG Whittaker Jacqueline Robles NP Jul 11, 2019 19:44
== END 2019-07-09 17:27 | disposition home or self-care (01) | DRG 720 ==
LOC: EMR 21:31 → 2E 23:07 → EDBEDREQ 23:25 → 2E 07-04 02:50 → 4E 07-07 15:15
DX: A41.9 Sepsis, unspecified organism (principal); I42.9 Cardiomyopathy, unspecified; E87.2 Acidosis; K56.41 Fecal impaction; R16.2 Hepatomegaly with splenomegaly, not elsewhere classified; I36.1 Nonrheumatic tricuspid (valve) insufficiency; Z22.322 Carrier or suspected carrier of Methicillin resistant Staphylococcus aureus; R07.9 Chest pain, unspecified; F15.10 Other stimulant abuse, uncomplicated
CPT/HCPCS: 36415; 71046; 71275; 74177; 76700; 80048; 80053; 80202; 81003; 82248; 82550; 82553; 83605; 83880; 84484; 85025; 85379; 86703; 86710; 87040; 87081; 87181; 93005; 93306; 96361; 96365; 96367; 96375; 99285; J1580; J2405; J7030